=== PATIENT | male | born 1965 | race Caucasian/White ===

== ENCOUNTER 2017-02-07 09:05 | Emergency (ER) | payer BC ==
[~2017-02-07] VITALS: Ht 190.5 cm; Wt 156.0 kg
[2017-02-07] MEDS ORDERED: LISI-662 PO (09:15)
[2017-02-07] MEDS ORDERED: METF500T4 PO (09:15)
[2017-02-07 10:40] LABS: GLUCOSE,POINT OF CARE 203 MG/DL (70-110)
[2017-02-07] MEDS ORDERED: IBUPROFEN 600 MG TABLET PO ONE (11:45)
[2017-02-07 12:01] VITALS: BP 141/78
== END 2017-02-07 12:03 | disposition home or self-care (01) ==
LOC: EMS 09:08
DX: S39.011A Strain of muscle, fascia and tendon of abdomen, initial encounter (principal); E11.9 Type 2 diabetes mellitus without complications; I10 Essential (primary) hypertension; X50.9XXA Other and unspecified overexertion or strenuous movements or postures, initial encounter; Y93.89 Activity, other specified; Y92.89 Other specified places as the place of occurrence of the external cause; Y99.8 Other external cause status
CPT/HCPCS: 82962; 99283